=== PATIENT | female | born 1945 | race Caucasian/White ===

== ENCOUNTER 2018-07-04 17:57 | Emergency (ER) | payer MEDICARE ==
[~2018-07-04] VITALS: Ht 165.1 cm; Wt 59.0 kg
== END 2018-07-04 18:16 | disposition left against medical advice (07) ==
LOC: ER 17:57
DX: R42 Dizziness and giddiness (principal)
CPT/HCPCS: 99282

== ENCOUNTER 2018-11-20 12:37 | Observation (INO) | payer MEDICARE ==
[~2018-11-20] VITALS: Ht 162.6 cm; Wt 54.0 kg
--- NOTE | 2018-11-20 13:44 | Diagnostic Imaging Report ---
EXAMINATION: CHEST SINGLE (PORTABLE) INDICATION: ^ERMD ORDER ^[id number] ^1300 ^Y COMPARISON: None FINDINGS: AP view TUBES and LINES: None. LUNGS: Lungs are well inflated. Mild bilateral central pulmonary vascular congestion. No consolidations. PLEURA: No pleural effusion or pneumothorax. HEART AND MEDIASTINUM: Mild enlargement of the cardiac silhouette. BONES AND SOFT TISSUES: No acute osseous lesion. Soft tissues are unremarkable. UPPER ABDOMEN: No free air under the diaphragm. IMPRESSION: Bilateral central pulmonary vascular congestion. Signed by: Dr. Maryam Huff M.D. on 11/20/2018 1:41 PM
[2018-11-20 13:47] LABS: BILIRUBIN,URINE NEGATIVE (NEGATIVE); CLARITY,URINE HAZY (CLEAR); COLOR,URINE YELLOW (YELLOW); KETONES,URINE NEGATIVE (NEGATIVE); LEUKOCYTE ESTERASE ,URINE NEGATIVE (NEGATIVE); NITRITE,URINE NEGATIVE (NEGATIVE); PROTEIN,URINE DIPSTICK NEGATIVE (NEGATIVE); RBC,URINE 0-5 /HPF (0-5); URINE UROBILINOGEN 0.2 mg/dL (0.2 - 1)
[2018-11-20 13:48] LABS: BACTERIA,URINE FEW /HPF; EPITHELIAL CELLS,URINE FEW /LPF
--- NOTE | 2018-11-20 14:00 | Diagnostic Imaging Report ---
History:AMS, headache Comparison studies:None Technique: Axial images were obtained from the skull base to the vertex. Coronal and sagittal images reconstructed from the axial data. Intravenous contrast: None Dose modulation, iterative reconstruction, and/or weight based adjustment of the mA/kV was utilized to reduce the radiation dose to as low as reasonably achievable. Findings: Scalp/skull: No abnormalities. Extra-axial spaces: No masses. No fluid collections. Brain sulci: Mildly prominent. Ventricles: Mild compensatory dilatation. No hydrocephalus. Parenchyma: Scattered hypodensities in the supratentorial white matter are small vessel ischemic changes. Right subinsular and left striatocapsular region chronic lacunar infarcts. No masses, hemorrhage, acute or chronic cortical vascular insults. Sellar/suprasellar region: No abnormalities. Craniocervical junction: Patent foramen magnum. No Chiari one malformation. Incidental findings: Atherosclerotic calcifications in the carotid siphons . Impression: No acute abnormalities. Chronic findings: 1. Mild generalized volume loss. 2. Mild to moderate supratentorial white matter small vessel ischemic changes. Signed by: DR Neel Juan M.D. on 11/20/2018 1:57 PM
[2018-11-20 14:17] LABS: BASOPHILS % 0.4 % (0.0-1.0); EOSINOPHILS % 0.6 % (0.0-6.0); HEMATOCRIT 35.5 % (34.2-44.1); HEMOGLOBIN 11.7 g/dL (12.0-16.0); LYMPHOCYTES # (AUTO) 0.9 (1.0-3.2); LYMPHOCYTES % 12.9 % (18.0-39.1); MEAN CORPUSCULAR HEMOGLOBIN 29.8 pg (28-32); MEAN CORPUSCULAR VOLUME 90.3 fL (81-99); MONOCYTES # (AUTO) 0.4 (0.2-0.8); NEUTROPHILS # (AUTO) 5.7 (2.1-6.9); NEUTROPHILS % 79.8 % (38.7-80.0); PLATELET COUNT 229 x10e3/uL (140-360); RED BLOOD COUNT 3.93 x10e6/uL (3.6-5.1); RED CELL DISTRIBUTION WIDTH 13.4 % (11.7-14.4)
[2018-11-20 14:27] LABS: INR 0.82; PROTHROMBIN TIME 11.8 seconds (11.9-14.5)
[2018-11-20 14:28] LABS: PARTIAL THROMBOPLASTIN TIME 24.5 seconds (23.8-35.5)
--- NOTE | 2018-11-20 14:39 | NUR ---
PT STATES SHE DOES NOT WANT TO STAY; DR MORELOS SPOKE WITH PT TO ADVISE PT IT IS IN HER BEST INTEREST TO STAY; PT STATES SHE WOULD THINK ABOUT IT WHILE AWAITING RESULTS OF LAB WORK
[2018-11-20 16:05] LABS: ALBUMIN 3.9 g/dL (3.5-5.0); ALBUMIN/GLOBULIN RATIO 1.1 (0.8-2.0); ANION GAP 17.3 mmol/L (8-16); CALCIUM 9.5 mg/dL (8.4-10.2); CREATININE, SERUM 1.04 mg/dL (0.57-1.11); MAGNESIUM 2.3 MG/DL (1.3-2.1); POTASSIUM 4.3 mmol/L (3.5-5.1)
[2018-11-20 16:12] LABS: CREATINE KINASE MB 2.2 ng/mL (0-5.0)
--- OUTSIDE RECORDS SUMMARY | 2018-11-20 17:05 | XMS REPORT ---
[facility] Address Unknown Phone Unavailable Care Team Providers Care Sash Maker Name Role Phone Lorena ULLOA Unavailable Unavailable Problems This patient has no known problems. Allergies, Adverse Reactions, Alerts This patient has no known allergies or adverse reactions. Medications This patient has no known medications. Results Test Description Test Time Test Comments Text Results Atomic Results Result Comments CHEST SINGLE (PORTABLE) 2018-11-20 13:40:00 [place] [address] Patient Name: MIKHAIL LYONS MR #: [id number] : 1945 Age/Sex: 73/F Req #: [id number] Adm Physician: Ordered by: OMAR ORR MEASURING MACHINE OPERATOR Report #: [id number] Location: ER Room/Bed: Procedure: [id number] DX/CHEST SINGLE (PORTABLE) Exam Date: 11/20/18 Exam Time: 1300 REPORT STATUS: Signed EXAMINATION: CHEST SINGLE (PORTABLE) IN DICATION: ERMD ORDER [id number] 1300 Y COMPARISON: None FINDINGS: AP view TUBES and LINES: None. LUNGS: Lungs are well inflated. Mild bilateral central pulmonary vascular congestion. No consolidations. PLEURA: No pleural effusion or pneumothorax. HEART AND MEDIASTINUM: Mild enlargement of the cardiac silhouette. BONES AND SOFT TISSUES: No acute osseous lesion. Soft tissues are unremarkable. UPPER ABDOMEN: No free air under the diaphragm. IMPRESSION: Bilateral central pulmonary vascular congestion. Signed by: Dr. Jarrett Alvares M.D. on 11/20/2018 1:41 PM Dictated By: JARRETT ALVARES MD 1341 Transcribed By: PANCHITO on 11/20/18 1341 COPY TO: OMAR ORR MEASURING MACHINE OPERATOR CT BRAIN WO 2018-11-20 13:40:00 [place] [address] Patient Name: MIKHAIL LYONS MR #: [id number] : 1945 Age/Sex: 73/F Req #: [id number] Adm Physician: Ordered by: OMAR ORR MEASURING MACHINE OPERATOR Report #: [id number] Location: ER Room/Bed: Procedure: [id number] CT/CT BRAIN WO Exam Date: 11/20/18 Exam Time: 1300 REPORT STATUS: Signed History:AMS, headache Comparison studies:None Techniqu e: Axial images were obtained from the skull base to the vertex. Coronal and sagittal images reconstructed from the axial data. Intravenous contrast: None Dose modulation, iterative reconstruction, and/or weight based adjustment of the mA/kV was utilized to reduce the radiation dose to as low as reasonably achievable. Findings: Scalp/skull: No abnormalities. Extra-axial spaces: No masses. No fluid collections. Brain sulci: Mildly prominent. Ventricles: Mild compensatory dilatation. No hydrocephalus. Parenchyma: Scattered hypodensities in the supratentorial white matter are small vessel ischemic changes. Right subinsular and left striatocapsular region chronic lacunar infarcts. No masses, hemorrhage, acute or chronic cortical vascular insults. Sellar/suprasellar region: No abnormalities. Craniocervical junction: Patent foramen magnum. No Chiari one malformation. Incidental findings: Atherosclerotic calcifications in the carotid siphons . Impression: No acute abnormalities. Chronic findings: 1. Mild generalized volume loss. 2. Mild to moderate supratentorial white matter small vessel ischemic changes. Signed by: DR Neel Juan M.D. on 11/20/2018 1:57 PM Dictated By: NEEL HUSSEIN MD 1359 Transcribed By: PANCHITO on 0 11/20/181356 COPY TO: OMAR ORR NP
[2018-11-20 17:57] VITALS: BP 206/84
[2018-11-20] MEDS ORDERED: HYDRALAZINE HCL 20 MG/ML VIAL IV PRN (18:00)
[2018-11-20] MEDS ORDERED: ACETAMINOPHEN 325 MG TAB PO PRN (18:00)
[2018-11-20] MEDS ORDERED: ONDANSETRON HCL INJ 2MG/ML 2ML 2 MG/ML VIAL IV PRN (18:00)
--- NOTE | 2018-11-20 18:26 | Diagnostic Imaging Report ---
Exam: Noncontrast brain MRI History: 73-year-old female with times of memory loss over multiple days Comparison studies: Head CT dated 11/20/2018 Technique: Brain: Pre-contrast: Sagittal T2; axial T2, T1-IR, MPGR, DWI, axial and coronal T2 flair Intravenous contrast: None Findings: Brain: Scalp: No abnormal signal. No masses. Bone marrow: Normal in signal intensity.. Extra-axial: No masses or fluid collections. Brain sulci: Mildly prominent . Ventricles: Normal in size . No hydrocephalus. 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 There is involvement of the bilateral thalami, midbrain, and tommie, to a greater degree than is typically seen. No masses, hemorrhage, acute or chronic vascular insults. Suprasellar region: No abnormalities. Craniocervical junction: No abnormalities. Patent foramen magnum. No Chiari one malformation Vessels: Normal flow-voids in the arteries and sinuses. . IMPRESSION: Brain MRI: No acute infarct. Mild scattered white matter ischemic changes. There is signal involvement of the bilateral thalami and brainstem which is slightly greater than typically seen and while these may represent changes related to microvascular ischemic disease, consideration may be given to other etiologies such as toxic or metabolic derangements. Preliminary report was provided by the neuroradiology fellow. Final read to follow. Signed by: DR Neel Juan M.D. on 11/20/2018 6:47 PM
[2018-11-20 20:52] VITALS: BP 150/65
[2018-11-20 22:52] VITALS: BP 150/65
[2018-11-21] VITALS: BP 138/67
--- NOTE | 2018-11-21 05:00 | NUR ---
Patient laying in bed with HOB slightly elevated. No sob noted no acute distress noted. Stable condition and will continue to monitor.
[2018-11-21 05:19] LABS: BASOPHILS % 0.6 % (0.0-1.0); EOSINOPHILS # (AUTO) 0.1 (0.0-0.4); HEMATOCRIT 34.6 % (34.2-44.1); HEMOGLOBIN 11.5 g/dL (12.0-16.0); LYMPHOCYTES # (AUTO) 1.4 (1.0-3.2); MEAN CORPUSCULAR HEMOGLOBIN 29.6 pg (28-32); MEAN CORPUSCULAR HGB CONC 33.2 g/dL (31-35); MEAN CORPUSCULAR VOLUME 89.2 fL (81-99); MONOCYTES # (AUTO) 0.5 (0.2-0.8); MONOCYTES % 9.9 % (4.4-11.3); NEUTROPHILS % 59.1 % (38.7-80.0); PLATELET COUNT 215 x10e3/uL (140-360); RED BLOOD COUNT 3.88 x10e6/uL (3.6-5.1); RED CELL DISTRIBUTION WIDTH 13.4 % (11.7-14.4)
[2018-11-21 05:32] LABS: ANION GAP 11.8 mmol/L (8-16); BLOOD UREA NITROGEN 14 mg/dL (7-26); BUN/CREATININE RATIO 18 (6-25); CALCIUM 9.4 mg/dL (8.4-10.2); CARBON DIOXIDE 24 mmol/L (22-29); CHLORIDE 108 mmol/L (98-107); CHOL/HDL RATIO 2.7 (3.0-3.6); CHOLESTEROL 251 MD/DL (0-199); CREATININE, SERUM 0.76 mg/dL (0.57-1.11); EST GLOMERULAR FILTRATION RATE > 60 ML/MIN (60-); GLUCOSE 110 mg/dL (74-118); HDL CHOLESTEROL 93 MG/DL (40-60); LDL CHOLESTEROL 139 MG/DL (60-130); MAGNESIUM 2.2 MG/DL (1.3-2.1); POTASSIUM 3.8 mmol/L (3.5-5.1); SODIUM 140 mmol/L (136-145); TRIGLYCERIDES 94 MG/DL (0-149)
[2018-11-21 05:50] VITALS: BP 168/76
[2018-11-21 05:55] LABS: FREE T4 (FREE THYROXINE) 0.98 ng/dL (0.9-1.8); THYROID STIMULATING HORMONE 2.421 uIU/mL (0.350-4.940)
[2018-11-21] MEDS ORDERED: LABETALOL HCL200 MG PO (07:05)
[2018-11-21] MEDS ORDERED: POTASSIUM CHLORIDE 20 MEQ TAB CR PO STA (07:35)
[2018-11-21] MEDS ORDERED: FUROSEMIDE INJ 10 MG/ML 4 ML VIAL IV ONE (07:45)
[2018-11-21 07:54] VITALS: BP 192/80
[2018-11-21] MEDS ORDERED: NORVASC10 MG PO (08:07)
[2018-11-21] MEDS ORDERED: ASPIRIN325 MG PO (08:07)
[2018-11-21] MEDS ORDERED: LIPITOR20 MG PO (08:07)
[2018-11-21] MEDS ORDERED: AMLODIPINE BESYLATE 10 MG TAB PO SCH (09:00)
[2018-11-21] MEDS ORDERED: LABETALOL HCL 200 MG TAB PO SCH (09:00)
[2018-11-21] MEDS ORDERED: ASPIRIN 81 MG ENTERIC COATED PO SCH (09:00)
[2018-11-21 10:10] VITALS: BP 192/80
[2018-11-21 11:39] VITALS: BP 146/66
[2018-11-21 13:07] VITALS: BP 134/63
--- NOTE | 2018-11-21 17:41 | Consultation ---
DATE OF CONSULTATION: 11/21/2018 Neurology Consult Note HISTORY OF PRESENT ILLNESS: Ms. Del Toro is a 73-year-old right-hand dominant woman with past medical history significant for hypertension and hyperlipidemia, admitted to [facility] under observation status on November 20, 2018 with confusion. For 3 days prior to discharge, the patient experienced intermittent confusion, lasting for several minutes at a time. When asked specific questions regarding her confusion, Ms. Del Toro reports becoming disoriented in [employer] on , 11/18/2018. Ms. Del Toro reports she could not recall why she was in [employer] or where she was in the store. Later the same day, Ms. Del Toro went to log into her Facebook account, but could not recall her log in information. The patient reports feeling "sluggish" at this time as well. Ms. Del Toro does not report a visual field cut or other disturbance, dysarthria, aphasia, facial droop, weakness, numbness, poor balance, impairment of gait, or dizziness associated with the above symptoms. Ms. Del Toro does not report fevers or chills, productive cough, nausea, vomiting, diarrhea, burning with urination, urinary frequency, or urinary urgency within the past several days. Ms. Del Toro presented to the emergency center at [facility] approximately 3 days after symptom onset for further evaluation. Upon arrival in the emergency center, the patient was afebrile with a blood pressure of 173/48 mmHg and a pulse of 84 beats per minute. Of note, during her hospitalization, the patient's blood pressure has been measured as high as 190s to 200s systolic over 60s to 80s diastolic. In the emergency center, the patient's neurological examination was documented as being nonfocal. A CT of the brain without contrast was performed. This study did not reveal evidence of recent large territorial ischemia or hemorrhage. Ms. Del Toro was admitted to [facility] under observation status for further evaluation and treatment of her symptoms. REVIEW OF SYSTEMS: Confusion. Otherwise, 12-point review of systems is negative. PAST MEDICAL HISTORY: Hypertension, hyperlipidemia. PAST SURGICAL HISTORY: None. PAST HOSPITALIZATIONS: None. FAMILY MEDICAL HISTORY: The patient's paternal and maternal grandparents are . Their medical histories are unknown. Ms. Del Toro father was killed during World War II. The patient's mother at the age of 97 years from natural causes. Ms. Del Toro had 7 siblings, all brothers. Two brothers are from cancer. The remaining five brothers are alive and healthy. The patient has three children, 1 son and 2 daughters, all of whom are alive and healthy. SOCIAL HISTORY: Ms. Del Toro is . She is retired. The patient does not report current or prior tobacco or recreational drug use. Ms. Del Toro does drink an alcoholic beverage multiple days per week. HOME MEDICATIONS: Amlodipine 10 mg by mouth daily, aspirin 325 mg by mouth daily, atorvastatin 20 mg by mouth daily, labetalol 200 mg by mouth twice daily. HOSPITAL MEDICATIONS: Tylenol, Norvasc, aspirin, atorvastatin, hydralazine, labetalol, Zofran. ALLERGIES: PENICILLIN AND CODEINE. NO KNOWN FOOD ALLERGIES. NO KNOWN ALLERGIES TO LATEX. NO KNOWN ALLERGIES TO IODINE OR OTHER CONTRAST MATERIALS. PHYSICAL EXAMINATION: VITAL SIGNS: Height 64 inches, weight 119 pounds, BMI 20.4 kg/m2, blood pressure 192/80 mmHg, pulse 70 beats per minute, respiratory rate 20 breaths per minute, and oxygen saturation 99% on room air. GENERAL: The patient is awake and alert, does not appear distressed. HEENT: Normocephalic, atraumatic. Pupils are equal, round, and reactive to light. Moist mucous membranes. NECK: Supple. No appreciable thyromegaly. No appreciable carotid bruits. CARDIOVASCULAR: S1, S2, regular rate and rhythm. No murmurs, rubs, or gallops. RESPIRATORY: Clear to auscultation bilaterally. No wheezes, rhonchi, or rales. EXTREMITIES: The skin is warm and dry. No clubbing, cyanosis, or edema. The posterior tibial and dorsalis pedis pulses are 2+ and symmetric. SKIN: No rashes or lesions. NEUROLOGIC: Memory/Attention: The patient is awake and alert, oriented to person, place, time, and situation. Cranial Nerves: Cranial nerve I - not tested. Cranial nerve II, III, IV, and - pupils are equal and round, react briskly to light (from 4 mm to 2 mm). Extraocular movements intact. No nystagmus. Cranial nerve V - sensation to light touch and pinprick is intact in the bilateral V1 through V3 distributions. Strength in the temporalis and masseter muscles is within normal limits. Cranial nerve VII - the face is symmetric as are all facial movements. Strength is within normal limits. Cranial nerve VIII - hearing is intact to finger rub bilaterally. Cranial nerve IX, X, - the soft palate elevates equally and symmetrically. Cranial nerve XI - normal strength of the bilateral sternocleidomastoid and trapezius muscles. Cranial nerve 12-the tongue protrudes midline and moves symmetrically from [id number]. STRENGTH: Bulk is normal. Strength is 5/5 in the bilateral deltoids, biceps, triceps, wrist flexors and extensors, finger flexors and extensors, intrinsic hand muscles, hip flexors, knee flexors and extensors, ankle dorsiflexion and plantar flexion, and intrinsic foot muscles. Tone is normal. DEEP TENDON REFLEXES: Deep tendon reflexes are 1+ and symmetric at the triceps, biceps, brachioradialis, patellas, and Achilles. Plantar responses are flexor bilaterally. SENSATION: Sensation is intact to light touch and pinprick in both arms and both legs. CEREBELLAR: Qhyqcn-cfum-wmjipi and heel-posada movements are intact without dysmetria or other impairment. GAIT: Deferred. SPEECH: Spontaneous speech is normal without appreciable dysarthria or aphasia. Repetition is intact. INVOLUNTARY MOVEMENTS: None. PRONATOR DRIFT: None. LABORATORY DATA: The most recent basic metabolic panel is significant for a chloride of 108 and magnesium of 2.2. A liver function panel collected on November 20, 2018 is unremarkable. Cardiac enzymes are negative x1. B-natriuretic peptide 115.9, 124.2. Total cholesterol 251, triglycerides 94, LDL cholesterol 139, HDL cholesterol 93. TSH 2.421, free T4 0.98. Ammonia 37. The CBC with differential and platelets is unremarkable. The coagulation profile is within normal limits. A urinalysis is significant only for an elevated pH of 8 with 6-10 white blood cells. A urine culture collected on November 20, 2018, reveals no growth at 18-24 hours. DIAGNOSTIC STUDIES: Electrocardiogram of 11/20/2018: Normal sinus rhythm at 76 beats per minute. Chest x-ray 11/20/2018: Bilateral central pulmonary vascular congestion. CT of the brain without contrast 11/20/2018: On my review, there is no evidence of recent large territorial ischemia, hemorrhage, mass, or mass effect. Cerebral volumes are appropriate for age. The findings compatible with [id number] chronic small-vessel ischemic disease. MRI of the brain without contrast 11/20/2018: On my review, there is no evidence of recent or remote large territorial ischemia, hemorrhage, mass, or mass effect. Cerebral volumes are appropriate for age. There are scattered T2/FLAIR hyperintense foci in the periventricular and subcortical white matter compatible with mild chronic small vessel ischemic disease. ASSESSMENT AND PLAN: Ms. Del Toro is a 73-year-old right-hand dominant woman with past medical history significant for hypertension and hyperlipidemia, admitted to [facility] on November 20, 2018 with intermittent confusion as described in the history of present illness. It should be noted, the patient has had several markedly elevated blood pressures during this hospitalization. At present, the patient's neurological examination is nonfocal. Her laboratory data and other diagnostic studies have been reviewed and are documented above. In my opinion, Ms. Del Toro's intermittent confusion is due to hypertensive encephalopathy. The diagnosis was discussed in detail with the patient. RECOMMENDATIONS: Are as follows: 1. Continue the patient's home antihypertensive medications. 2. Monitor vital signs per unit protocol and titrate medications to a goal blood pressure of less than 140/90 mmHg. 3. Defer treatment of the remaining medical comorbidities to the primary and other services following the patient. Thank you for this consultation. Please call again with any questions or concerns. TIME SPENT: 50 minutes. Glenny Valadez MD CP/NEREYDA /[id number] MTDNoa
[2018-11-21] MEDS ORDERED: ATORVASTATIN 20 MG TAB PO SCH (21:00)
--- NOTE | 2018-11-22 05:12 | Discharge Summary ---
ADMISSION DIAGNOSES: Altered mental status, hypertension, hyperlipidemia, hypermagnesemia. DISCHARGE DIAGNOSES: Altered mental status, hypertension, hyperlipidemia, hypermagnesemia, rule out transient ischemic attack, rule out cerebrovascular accident plus hypertensive encephalopathy. HISTORY: The patient has a history of hypertension. SURGICAL HISTORY: None. FAMILY HISTORY: The patient's brother has cancer. The patient's grandma had a stroke. SOCIAL HISTORY: The patient admits to drinking wine daily. HOSPITAL COURSE: A 73-year-old female with complaints of 3 or 4 days of intermittent confusion, the worst episode was on while at [employer]. She could not remember her name, where she was or why she was there. Episode lasted about 12 minutes. She complains of a left-sided headache on Thursday, but denies numbness, weakness, dizziness, or difficulty with ambulation. On admission, the patient had CAT scan of the brain, which was negative. An MRI of the brain negative. Carotid Doppler negative. UA negative. Ammonia within normal limits. Neurology was consulted, who assessed the patient and said that the AMS was due to hypertensive encephalopathy. The patient was taking labetalol at home. I added Norvasc and her blood pressure was much improved. So, she was discharged home with Lipitor, aspirin, and Norvasc on top of her labetalol. Vital signs stable. The patient is afebrile. She will follow up with primary care in 1-2 weeks. The patient understands discharge instructions and agrees to plan. Dictated by Roxana Danielle NP MD ARIANE Israel/NEREYDA /[id number]
== END 2018-11-21 14:10 | disposition home or self-care (01) ==
LOC: ER 12:37 → ERHOLD 16:40 → IMCU 17:46
PROVIDERS: ADMIT Internal Medicine; ATTEND Internal Medicine
DX: I67.4 Hypertensive encephalopathy (principal); I10 Essential (primary) hypertension; E78.5 Hyperlipidemia, unspecified; E83.41 Hypermagnesemia; Z80.9 Family history of malignant neoplasm, unspecified; Z82.3 Family history of stroke; Z88.5 Allergy status to narcotic agent; Z91.010 Allergy to peanuts
CPT/HCPCS: 36415 ×2; 70450; 70551; 71045; 80048; 80053; 80061; 81001; 82140; 82550; 82553; 83735 ×2; 83880 ×2; 84439; 84443; 84484; 85025 ×2; 85610; 85730; 87086; 93005; 93880; 99284; G0378 ×2; J1940